=== PATIENT | female | born 1985 | race Caucasian/White ===

== ENCOUNTER → 2018-03-31 16:02 | Outpatient (CLI) | payer OTHER, SELFPAY ==
[2018-03-31 22:29] LABS: Chlamydia Trachomatis by PCR Negative (Negative); Neisserai gonorrhoeae by PCR Negative (Negative); Probe Check PASS; Sample Adequacy Control PASS; Specimen Processing Control PASS
== END ==
PROVIDERS: Visit Provider Obstetrics & Gynecology
DX: Z11.3 Encounter for screening for infections with a predominantly sexual mode of transmission (principal)
CPT/HCPCS: 87491; 87591

== ENCOUNTER → 2018-05-30 10:23 | Outpatient (CLI) | payer OTHER, SELFPAY | PROVIDERS: Visit Provider Obstetrics & Gynecology | DX: Z36.85 Encounter for antenatal screening for Streptococcus B (principal) | CPT/HCPCS: 87081 ==

== ENCOUNTER 2018-06-19 18:20 | Inpatient (IN) | payer OTHER, SELFPAY ==
[2018-06-19 17:48] VITALS: BMI 36.3
[2018-06-19 18:23] LABS: ROM Internal Control Test YES-OK TO RESULT pt. (Internal QC); Record Kit Lot#, ROM+ J7836
[2018-06-19 18:24] LABS: ROM Patient Test POSITIVE (Negative)
[2018-06-19] MEDS: 0.9% Saline Lock 10 ML Syringe IV (18:40)
[2018-06-19 19:22] LABS: Hematocrit 36.5 % (37-47); Hemoglobin 12.3 g/dl (12.0-15.0); Mean Corp Hgb Conc 33.7 g/gl (32-36); Mean Corpuscular Hgb 29.9 pg (27.0-32.0); Mean Corpuscular Volume 88.6 fL (81-99); Platelet Count 203 K/mm3 (150-450); RBC Distribution Width CV 14.2 % (11.6-14.6); RBC Distribution Width SD 45.7 fl (35.1-43.9); Red Blood Count 4.12 M/mm3 (4.2-5.4); White Blood Count 9.3 K/mm3 (4.4-11.0)
[2018-06-19 19:24] LABS: Scan Indicated on CBC? Y/N NO
[2018-06-19] MEDS: Oxytocin 30 units/NS 500 ml 30 UNITS/500 ML IV.SOLN IV (23:22)
[2018-06-19] MEDS: Lactated Ringers 1,000 ML 50 ML IV (23:22)
[2018-06-20] MEDS: Lactated Ringers 1,000 ML 50 ML IV ×4 (03:36→13:41)
[2018-06-20] MEDS: fentaNYL-bupivacaine (epidural) 100 ML BAG EPIDURAL ×2 (08:35→14:14)
[2018-06-20] MEDS: 0.9% Saline Lock 10 ML Syringe IV ×2 (10:06→17:37)
--- NOTE | 2018-06-20 15:50 | PLAC_PTH ---
PATIENT: DAREN INFANTE LOC: [facility] U#:[id number] AGE/SX: 33/F ROOM: WP015 RE06/19/[address]: Dr. Maikol Solano MD : 1985 BED: 1 DIS: 06/22/2018 SPEC #: [id number] RECD: 06/20/18 16:46 STATUS: REBECCA REGeorgie #: [id number] MARTÍN: 06/20/18 15:[address]: Maikol Solano DEPT: SURGICAL PATHOLOGY RECD BY: Mikael Morataya Tissues: Placenta, NOS Procedures: Surgery Specimen Level V HEADER OPERATION: Vaginal delivery PRE-OP DIAGNOSIS: Meconium, decelerations TISSUE SUBMITTED: Placenta MICROSCOPIC DIAGNOSIS Pop placenta (664 gm): Umbilical cord - trivascular with mild acute funisitis. Placental membranes - no pathologic diagnosis. Placental disc - Vinicius-Elvin change, mildly increased intraparenchymal fibrin plaques and focal intraparenchymal microcalcifications. AM:russell 06/22/18 MICROSCOPIC DESCRIPTION Slides are reviewed. GROSS DESCRIPTION SPECIMEN: PLACENTA / CLINICAL INFORMATION: A. Weight: 3.536 kg B. Gestational Age: 39 weeks C. Sex: Female PLACENTAL WEIGHT (POST FIXATION): 664 gm PLACENTAL DIMENSIONS: 21 x 19 x 3 cm PLACENTAL SHAPE: Usual ovoid PLACENTAL WEIGHT FOR GESTATIONAL AGE: Within 10-99th percentile MEMBRANES - Present A. Insertion: Marginal B. Site of rupture from edge: 4 cm from edge of placental disc C. Color of membrane: Cabrales and mucoidy D. Abnormalities: None UMBILICAL CORD - Present A. Color: Cabrales-thakkar B. Insertion: Paracentral C. Length: 48 cm D. Diameter: 1 cm E. Number of vessels: Three F. Abnormalities: None PLACENTAL DISC - Present A. Color of surface: Cabrales-thakkar B. surface abnormalities: None C. Maternal cotyledons: Intact with minimal tears D. Attached retro placental clot: No clot E. Cut surface: Dark red and spongy F. Lesions: None G. Separate clot: Absent SECTIONS SUBMITTED: 1. Membrane roll 2. Cord, maternal end 3. Cord, end 4. Placental disc, and maternal surfaces 5. Placental disc, and maternal surfaces 6. Placental disc, and maternal surfaces SJ:russell 06/21/18 TC:2 CPT: 78258
[2018-06-20] MEDS: Oxytocin 30 units/NS 500 ml 30 UNITS/500 ML IV.SOLN 334 UNITS IV (15:54)
--- NOTE | 2018-06-20 16:10 | PCM.OB.VAG ---
Vaginal Delivery Maternal Presentation: Active Labor, Spontaneous Rupture of Membranes 39 weeks with SROM at home Method of Induction: Pitocin Amniotic Membrane Rupture Type: Spontaneous at home Rupture of Membrane time: 1700 06/19 Amniotic Fluid Description: Clear Final FARHAN: 06/27/18 Final FARHAN Source: US <20 weeks Gestational age: 39 Weeks and 0 Days Date of Procedure: 06/20/18 Pre-Operative Diagnosis: Labor Post-Operative Diagnosis: Same Surgery/ Procedure Performed: Vacuum Assisted Vaginal Delivery Anesthesiologist: Gerardo Mercado Type of Anesthesia: Epidural Description of Procedure: Progressed with pitocin augmentation to FD. Pushed for about 3 hours to bring vertex to +2 station. Repetitive deep variable decelarations were noted for last 1 04/24 hour. Decision made to assist delivery with the vacuum device. The Kiwi device was placed and over 6 contractions with 5 pulls and one pop off the vertex was delivered to the perineum. The baby was then delivered. There was a tight nuchal cord x 2 which was reduced after delivery. The cord was clamped and cut and the baby handed off to the waiting nursing staff for evaluation for meconium stained fluid. Cord blood gases were collected. The placenta was delivered spontaneously intact. The cord was noted to have a marginal insertion. The uterus contracted well. The vagina was inspected and a second degree posterior vaginal perineal tear was repaired with 2-0 vicryl. Presentation: Vertex Placental Delivery Description: Spontaneous Placenta Disposition: Sent to Pathology Percentage of Placenta Abruption: 0 Cord Vessel Description: 3 Vessels Nuchal Cord Compression: With compression Cord Gases drawn per routine: ABG, VBG Cord Entanglement: Around neck x 2, tight Drain: Morel to straight drain Estimated Blood Loss: 300cc A gender: Female (1 minute): 6 (5 minute): 8 Episiotomy Description: None Laceration: Midline, Perineal Extension/lac, Vaginal Extension/lac, 2nd degree Medications given after delivery: IV Pitocin Complications: None
[2018-06-20] MEDS: Oxytocin 30 units/NS 500 ml 30 UNITS/500 ML IV.SOLN 167 UNITS IV (16:24)
[2018-06-20 20:10] VITALS: BP 127/58; PULSE 104; RESP 18; TEMP 37.2
[2018-06-20] MEDS: Ibuprofen 600 MG Tablet PO (22:24)
[2018-06-21] VITALS: BP 122/77; PULSE 100; RESP 18; TEMP 37
[2018-06-21 03:05] VITALS: BP 121/63; PULSE 100; RESP 18; TEMP 37
[2018-06-21] MEDS: Ibuprofen 600 MG Tablet PO ×2 (06:07→18:51)
[2018-06-21 07:45] VITALS: BP 126/61; PULSE 95; RESP 16; TEMP 37.1
[2018-06-21 07:58] LABS: Hematocrit 32.6 % (37-47); Hemoglobin 10.7 g/dl (12.0-15.0); Mean Corp Hgb Conc 32.8 g/gl (32-36); Mean Corpuscular Hgb 29.9 pg (27.0-32.0); Mean Corpuscular Volume 91.1 fL (81-99); Mean Platelet Vol. 9.8 fl (6.2-12.0); Platelet Count 175 K/mm3 (150-450); RBC Distribution Width CV 14.1 % (11.6-14.6); RBC Distribution Width SD 45.3 fl (35.1-43.9); Red Blood Count 3.58 M/mm3 (4.2-5.4); Scan Indicated on CBC? Y/N NO; White Blood Count 13.1 K/mm3 (4.4-11.0)
--- NOTE | 2018-06-21 08:28 | PCM.PN.OB ---
Subjective: Some cramping with breast feeding. Some vaginal soreness. Bleeding light. Objective: Afeb VSS Hgb appropriate on PP day#1. - Physical Exam General: Alert, Oriented x3, Cooperative, No apparent distress Lungs: Clear to auscultation, Normal air movement Cardiovascular: Regular rate, Regular Rhythm Abdomen: Soft, Non Tender, Non-Distended, - - Fundus firm Extremities: Edema - mild LE Skin: No rashes Neurological: Neuro grossly intact Psych/Mental Status: Normal Affect Comment: Lochia appropriate Vital Signs Temp Pulse Resp BP 98.6 F 100 18 121/63 H 06/21/18 03:05 06/21/18 03:05 06/21/18 03:05 06/21/18 03:05 Weight: 232 lb Body Mass Index (BMI) 36.3 Intake and Output for Last 24 Hours 06/19/18 06/20/18 06/21/18 23:59 23:59 23:59 Intake Total 4611 / 4611 Output Total 2450 / 2450 800 / 800 Balance 2161 / 2161 -800 / -800 Laboratory Tests Past 24 Hrs 06/21/18 07:40 WBC 13.1 H RBC 3.58 L Hgb 10.7 L Hct 32.6 L MCV 91.1 MCH 29.9 MCHC 32.8 RDW 14.1 RDW Differential 45.3 H Plt Count 175 MPV 9.8 Medical Necessity - Tobacco Use Smoking Status: Never smoker Assessment/Plan Doing well on PP day#1. Continue routine PP care.
--- NOTE | 2018-06-21 08:31 | DCINST_ITS ---
Discharge Diet: No Restrictions Discharge Activity: Return to Normal Activity, May Drive, May Shower Return to work on:: 08/07/18 May shower in (days): 0 May resume sexual activity in: 6 weeks Call your doctor if your incision/area has: Sudden Increased Bleeding, Increased Pain/ Swelling, Foul Smelling Discharge Call your doctor if you observe: Fever of 101 or Higher, Inability to urinate, Inability to have a bowel movement, Using more than one pad per hour, Shortness of breath, Chest pain, Calf discomfort, Uncontrolled pain Cleanse incision/area with: Soap & Water Additional Instructions: If you experience any of the following, contact your healthcare provider. * Bleeding that soaks a pad every hour for 2 hours * Fever 100.4 or higher * Unrelieved incision or abdominal pain * Swelling, redness, discharge or bleeding from your incision or episiotomy site * Your incision begins to separate * Problems urinating (including inability to urinate or burning while urinating). * Visual changes * Severe headache * Flu-like symptoms * Pain or redness in one of both of your breasts * Pain, warmth, tenderness or swelling in your legs, especially the calf area * Frequent nausea and vomiting * Symptoms of depression or anxiety If you experience any of the following, call 911 or go to the nearest Emergency Room. * Chest pain * Problems breathing * Seizure activity * Partial or complete paralysis of a body part, slurred speech, weakness or drooping of the face, or a sudden inability to walk or hold your balance Allergies/Adverse Reactions: Allergies acetaminophen [From Tylenol] Allergy (Verified 06/19/18 17:59) Hives Medications to take at Discharge Vit No.130/Iron/Folic [ Tablet] 1 each PO 06/19/18 Ibuprofen [Motrin] 600 mg PO Q6H PRN PRN #30 tab 06/21/18 The following prescriptions were given: Ibuprofen [Motrin] 600 mg PO Q6H PRN PRN #30 tab PRN Reason: pain or cramping Please Follow Up With: Maikol Solano MD When: 6 weeks Test Results: Test results from this visit will be discussed in further detail at your follow- up appointment, if applicable. Proposed Discharge Date: 06/22/18
[2018-06-21] MEDS: Prenatal Vits Tablet 1 TABLET PO (11:50)
[2018-06-21 11:58] VITALS: BP 114/63; PULSE 99; RESP 16; TEMP 36.7
--- NOTE | 2018-06-21 15:30 | CASEMGMT ---
Addendum entered and electronically signed by Shara Pack 06/21/18 16:17: Reviewed and approve LITHODUPLICATOR OPERATOR student documentation below. -ANGELO Borges, WATER RESOURCES BUSINESS SEGMENT LEADER Original Note: Social Work Labor and Delivery Date of Referral:06/20/18 Time of Referral: 830am Date of Intervention: 06/21/18 Time of Intervention: 305pm Reason for Referral: History of anxiety History obtained from: medical record, mother of baby (MOB) Wendy Verde. Household composition: MOB lives with father of baby (FOB) Deo Verde. MOB denied any history of domestic violence or safety concerns in the home. Patient's parent/guardian status: MOB and FOB have been together for 6 years and for 2. MOB and FOB do not have any other children. Medical History: MOB is to 1 after of baby Shauna. MENDEZ's PNC started early in at [facility] due to [facility] closing. MOB transferred at 27 weeks [address] new dr. Baby Shauna was born 06/20/18 at 7lbs 12oz and scores of 6, 8, and 9. Educational Status: MOB has college degree. MOB reported to be able to read, write, and comprehend. 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 FOB works as a diesel engine i pipe fitter in the [place] [employer]. MENDEZ does not plan to return to work. Infant Supplies: MENDEZ reports to have car seat, bassinet, crib, breast pump, clothing, diapers, and wipes. Childcare/givers: MOB and FOB will be primary caregivers. MOB's parents will also be supplemental caregivers. Transportation: MOB and FOB both drive and denied any issues with transportation. Programs/Agencies involved: MENDEZ is not involved with any local agencies. MOB accepted [facility] referral. Children Services/legal issues: MOB does not have history of legal issues or children services Behavioral Health Issues: Mental Health History: MOB's PNC denoted a history of anxiety but MOB denied history of anxiety. MOB denied any other mental health diagnoses. MOB denies any suicidal ideations past or present. Substance Use History: MOB denied any substance use history. MOB reported to have alcohol one time a month outside of . Family History: MOB did not identify any concerns with family history. Drug Screens: MOB was not administered any drug screens. Family/Social stressors: MOB did not identify any family or social stressors currently or during . MOB did mention with concern baby's head was bruised from vacuum assisted delivery. Support systems: MOB reports FOB to be main support system. MOB's parents also support system. PPD/ Shaken baby/ Safe sleeping: show worker financial services internship reviewed safe sleeping, shaken baby, and PPD with MOB. MOB was understanding and receptive. ASSESSMENT: MOB was in room alone with baby. MOB was holding baby and rocking in rocking chair. MOB was calm and attentive for duration of conversation. MOB answered all questions appropriately. MOB spoke about care being changed due to [facility] closing and taking time to find new doctor. MOB talked about being great and recently moving into the home from his childhood. MOB denied any mental health diagnoses and reported to feel no anxiety. MOB seems calm and confident to return home. MOB reported to be feeling happy about of Shauna. PLAN: MOB home with baby. [facility] resources/ WIC/HMG packets provided to MOB. No other services indiacted or requested at this time. -Sarahy Mcdonald, LITHODUPLICATOR OPERATOR Student Health Management Consultant.
--- NOTE | 2018-06-21 16:22 | CASEMGMT ---
Addendum entered and electronically signed by Shara Pack 08/17/18 16:31: Reviewed and approve TRANSMISSION TESTER student documentation below. -ANGELO Borges, CREATIVE ASSISTANT Original Note: Social Work Labor and Delivery Help [facility] Referral submitted securely online through the [facility]'s web site via verbal confirmation from MOB. No other services indicated or requested at this time. -Sarahy Mcdonald, TRANSMISSION TESTER Student Logging Supervisor.
[2018-06-21 16:45] VITALS: BP 107/63; PULSE 104; RESP 16; TEMP 37.4
[2018-06-21 20:20] VITALS: BP 137/85; PULSE 104; RESP 18; TEMP 37.3; O2SAT 98
[2018-06-22 02:00] VITALS: BP 125/81; PULSE 85; RESP 16; TEMP 36.5; O2SAT 98
--- NOTE | 2018-06-22 07:41 | PN.OBGYN_ITS ---
Subjective: No specific complaints. Bleeding light. Objective: Afeb VSS - Physical Exam General: Alert, Oriented x3, Cooperative, No apparent distress Lungs: Clear to auscultation, Normal air movement Cardiovascular: Regular rate, Regular Rhythm Abdomen: Soft, Non Tender, Non-Distended Skin: No rashes Neurological: Neuro grossly intact Psych/Mental Status: Normal Affect Comment: Lochia light Vital Signs Temp Pulse Resp BP Pulse Ox 97.7 F L 85 16 125/81 H 98 06/22/18 02:00 06/22/18 02:00 06/22/18 02:00 06/22/18 02:00 06/22/18 02:00 Oxygen Delivery Method Room Air Weight: 232 lb Body Mass Index (BMI) 36.3 Intake and Output for Last 24 Hours 06/20/18 06/21/18 06/22/18 23:59 23:59 23:59 Intake Total 4611 / 4611 Output Total 2450 / 2450 800 / 800 Balance 2161 / 2161 -800 / -800 Laboratory Tests Past 24 Hrs 06/21/18 07:40 WBC 13.1 H RBC 3.58 L Hgb 10.7 L Hct 32.6 L MCV 91.1 MCH 29.9 MCHC 32.8 RDW 14.1 RDW Differential 45.3 H Plt Count 175 MPV 9.8 Medical Necessity - Tobacco Use Smoking Status: Never smoker Assessment/Plan Doing well on PP day#2. Cleared for discharge home today. Home going instru ctions and warnings given.
--- NOTE | 2018-06-22 07:41 | PCM.DC.SUM ---
Discharge Date and Diagnosis Date of Admission: 06/19/18 Date of Discharge: 06/22/18 - Primary Discharge Diagnosis Labor, S/P Vacuum assisted vaginal delivery Hospital Course and Treatment Operations: None Procedures: - - Epidural, pitocin augmentation, Vacuum assisted vaginal delivery Summary of Care Provided: The patient is a 33 year old F [admitted with SROM at home. Progressed with pitocin augmentation to FD then pushed to bring baby to +2 station. Kiwi vacuum assited delivery was performed without complication. Post course was unremarkable.] - Physical Exam Vital Signs Temp Pulse Resp BP Pulse Ox 97.7 F L 85 16 125/81 H 98 06/22/18 02:00 06/22/18 02:00 06/22/18 02:00 06/22/18 02:00 06/22/18 02:00 Oxygen Delivery Method Room Air Weight: 232 lb Body Mass Index (BMI) 36.3 Intake and Output for Last 24 Hours 06/20/18 06/21/18 06/22/18 23:59 23:59 23:59 Intake Total 4611 / 4611 Output Total 2450 / 2450 800 / 800 Balance 2161 / 2161 -800 / -800 Laboratory Tests Past 24 Hrs 06/21/18 07:40 WBC 13.1 H RBC 3.58 L Hgb 10.7 L Hct 32.6 L MCV 91.1 MCH 29.9 MCHC 32.8 RDW 14.1 RDW Differential 45.3 H Plt Count 175 MPV 9.8 Discharge Diet: No Restrictions Discharge Activity: Return to Normal Activity, May Drive, May Shower Return to work on:: 08/07/18 May shower in (days): 0 May resume sexual activity in: 6 weeks Call your doctor if your incision/area has: Sudden Increased Bleeding, Increased Pain/ Swelling, Foul Smelling Discharge Call your doctor if you observe: Fever of 101 or Higher, Inability to urinate, Inability to have a bowel movement, Using more than one pad per hour, Shortness of breath, Chest pain, Calf discomfort, Uncontrolled pain Cleanse incision/area with: Soap & Water Home Medications: Medications to take at Discharge Vit No.130/Iron/Folic [ Tablet] 1 each PO 06/19/18 Ibuprofen [Motrin] 600 mg PO Q6H PRN PRN #30 tab 06/21/18 Following Prescrptions Were Given to Patient: Ibuprofen [Motrin] 600 mg PO Q6H PRN PRN #30 tab PRN Reason: pain or cramping Please Follow Up With: Maikol Solano MD When: 6 weeks Disposition: Home Minutes spent on discharge:: 15 Patient Condition:: Good Medical Necessity - Tobacco Use Smoking Status: Never smoker Meaningful Use Info Meaningful Use Diagnoses (Choose all that apply): None applicable
[2018-06-22 08:35] VITALS: BP 128/67; PULSE 93; RESP 16; TEMP 37; O2SAT 97
[2018-06-23 00:03] LABS: Pathology Specimen OB SEE PATHOLOGY REPORT
--- NOTE | 2018-06-29 17:07 | NURSING ---
Follow up phone call completed and doing well. Continues to be struggling with enough milk supply for baby. Love her time here at [facility]. Michelle MTZ
--- NOTE | 2018-06-29 17:09 | NURSING ---
Follow up phone call made. Mom not at home. Voicemail left. Michelle MTZ
== END 2018-06-22 11:20 | disposition home or self-care (01) | DRG 807 ==
LOC: WPOUT 18:26
PROVIDERS: Obstetrics & Gynecology; Admitting Provider Obstetrics & Gynecology; Referring Provider Obstetrics & Gynecology; Visit Provider Obstetrics & Gynecology
DX: O76 Abnormality in fetal heart rate and rhythm complicating labor and delivery (principal); Z37.0 Single live birth; O69.1XX0 Labor and delivery complicated by cord around neck, with compression, not applicable or unspecified; O70.1 Second degree perineal laceration during delivery; Z3A.39 39 weeks gestation of pregnancy
CPT/HCPCS: 59025; 59050; 76815; 84112; 85027; 86850; 86900; 88307; 99218; J7120; A4216; G0378

== ENCOUNTER → 2019-01-31 | Outpatient (CLI) | payer OTHER, SELFPAY ==
[2019-02-06 16:44] LABS: HPV APTIMA, High Risk Negative (Negative); HPV Reflexed? YES, CHARGE PATIENT
== END | disposition home or self-care (01) ==
LOC: LABSPEC 14:32
PROVIDERS: Referring Provider Obstetrics & Gynecology; Visit Provider Obstetrics & Gynecology
DX: Z12.4 Encounter for screening for malignant neoplasm of cervix (principal)
CPT/HCPCS: 87624; 88175; G0145